=== PATIENT | male | born 1995 | race Caucasian/White ===

== ENCOUNTER 2018-04-05 18:38 | Emergency (ER) | payer OTHER ==
[2018-04-05 21:37] LABS: ABS Basophils 0.1 10^3/ul (0-0.2); ABS Eosinophils 0.1 10^3/ul (0-0.6); ABS Lymphocytes 1.8 10^3/ul (1.0-4.8); ABS Monocytes 0.4 10^3/ul (0-0.8); ABS Neutrophils 3.7 10^3/ul (1.5-7.7); ABS Nucleated RBC 0 10^3/ul; Eosinophil % 1.8 % (0-6); Hematocrit 39 % (42-52); Hemoglobin 13.1 g/dl (14.0-18.0); Lymphocyte % 29.9 % (25-47); Mean Corpuscular HGB Conc 34 g/dl (31-36); Mean Corpuscular Hemoglobin 31 pg (27-31); Mean Corpuscular Volume 92 fL (80-94); Mean Platelet Volume 7.9 um3 (7.4-10.4); Nucleated Red Blood Cells % 0.1; Platelet Count 205 10^3/ul (150-450); Red Blood Count 4.21 10^6/ul (4.00-5.40); Red Cell Distribution Width 13 % (10.5-15)
[2018-04-05 21:54] LABS: EGFR Non-African American 112.9 (>60)
[2018-04-05] MEDS ORDERED: Ketorolac INJ* 30 MG/ML 1 ML VIAL IM ONE (22:13)
[2018-04-05 22:17] LABS: Urine Appearance Clear; Urine Blood Negative (Negative); Urine Color Straw; Urine Ketones Negative (Negative); Urine Protein Negative (Negative); Urine Specific Gravity 1.008 (1.010-1.030); Urine Urobilinogen Negative (Negative)
--- NOTE | 2018-04-05 23:05 | RAD ---
EXAM: CT Abdomen and Pelvis Without Intravenous Contrast CLINICAL HISTORY: 23 years old, male; Pain; Abdominal pain; Additional info: Right side flank pain and right abd pain TECHNIQUE: Axial computed tomography images of the abdomen and pelvis without intravenous contrast. Coronal and sagittal reformatted images were created and reviewed. COMPARISON: No relevant prior studies available. FINDINGS: Lung bases: Nodule located in the periphery of the right lung base. It has smooth margins. It measures approximately 4.6 mm in AP length and 3 mm in width. It is best seen on series 2 image 3. ABDOMEN: Liver: The liver is of normal size and appearance. No focal hepatic lesion. Gallbladder and bile ducts: No calcified gallstone. No ductal dilatation. Pancreas: The pancreas is normal in appearance. No dilatation pancreatic duct. Spleen: The spleen is of normal size and appearance. Adrenals: The adrenal glands are normal. Kidneys and ureters: The kidneys are normal size and appearance. Small punctate calcification located in the right lower pole calyx. This is non-obstructing. No hydronephrosis. In following the course of the right ureter no calcification within the lumen of the ureter. The kidney is of normal size and appearance no hydronephrosis or nephrolithiasis. No hydroureter. Stomach and bowel: Moderate amount of feces and air it is located within the colon. No bowel obstruction. No mucosal thickening. PELVIS: Appendix: The appendix is visualized and is normal in appearance. Bladder: No calcified stone within the bladder. Reproductive: Unremarkable as visualized. ABDOMEN and PELVIS: Intraperitoneal space: No free abdominal fluid or air. Bones/joints: No acute fracture. No dislocation. Soft tissues: Unremarkable. Vasculature: No abdominal aortic aneurysm. Lymph nodes: No mesenteric or periaortic adenopathy. IMPRESSION: 1. No acute findings. 2. 4.6 mm smooth solid nodule located in the periphery of the right lung base. Final read addendum: THE RECOMMENDATIONS FOR FOLLOWUP AND MANAGEMENT OF AN INCIDENTALLY DETECTED PULMONARY NODULE LESS THAN 6 MM IN SIZE, IN A PATIENT WITHOUT A HISTORY OF MALIGNANCY, INCLUDE NO FOLLOWUP FOR A LOW-RISK PATIENT OR OPTIONAL FOLLOWUP CT IN 12 MONTHS FOR A HIGH RISK PATIENT. THESE RECOMMENDATIONS APPLY FOR PATIENTS OVER THE AGE OF 35. 4 PATIENT BELOW THE AGE OF 35, WITH A CONCOMITANT LOWER RISK OF PULMONARY MALIGNANCY, FURTHER EVALUATION SHOULD BE BASED ON CLINICAL CHARACTERISTICS. NOTES: SIZE = AVERAGE LENGTH AND WIDTH; HIGH RISK IS DEFINED A HISTORY OF SMOKING OR OTHER KNOW RISK FACTORS FOR LUNG CANCER; LOW RISK IS DEFINED MINIMAL OR ABSENT HISTORY OF SMOKING OR OTHER KNOWN RISK FACTORS. Ruthie H, JUSTINE Mcdonnell, SHRAVAN Givens, et al (2017) "Guidelines for Management of Incidental Pulmonary Nodules Detected on CT Images: From the Fleischner Society 2017." Radiology; 284(1): 228-243. doi:10.1148/[id number] R2
--- NOTE | 2018-04-05 23:39 | ED ---
GI/ HPI - HPI Summary HPI Summary: 23 year old male presents with right-sided abdominal pain for the past couple days. He states the pain radiates to his right flank. it also radiates to his scrotum occasionally. He denies any testicular pain. No penile discharge. No pains urination. No urgency or frequency. No hematuria. Does have family history kidney stones. No previous surgeries. He admits to constipation has been taking some castor oil. He denies any nausea vomiting. Denies any fever. He hasn't taking anything for his pain. - History of Current Complaint Chief Complaint: EDFlankPain Time Seen by Provider: 04/05/18 22:03 Stated Complaint: RT SIDE AND BACK PAIN Pain Intensity: 4 - Allergy/Home Medications Allergies/Adverse Reactions: Allergies Allergy/AdvReac Type Severity Reaction Status Date / Time No Known Allergies Allergy Verified 04/05/18 18:56 Home Medications: Home Medications Bupropion XL* [Wellbutrin XL *] 150 mg PO DAILY 04/05/18 [History Confirmed ] Dextroamphetamine (NF) TAB [Dexedrine TAB*] 10 mg PO BID 04/05/18 [History Confirmed 04/05/18] Venlafaxine EXT RELEASE CAP* [Effexor Xr CAP*] 112.5 mg PO DAILY 04/05/18 [ History Confirmed 04/05/18] PMH/Surg Hx/FS Hx/Imm Hx Endocrine/Hematology History: Denies: Hx Anticoagulant Therapy Cardiovascular History: Denies: Hx Hypertension - Immunization History Date of Tetanus Vaccine: utd Date of Influenza Vaccine: none Infectious Disease History: No Infectious Disease History: Denies: Traveled Outside the [place] in Last 30 Days - Family History Known Family History: Negative: Diabetes - Social History Alcohol Use: Weekly Alcohol Amount: once a week Substance Use Type: Reports: Marijuana Substance Use Comment - Amount & Last Used: used a few days ago, 1/4 gram Smoking Status (MU): Never Smoked Tobacco Review of Systems Negative: Fever Negative: Chest Pain Negative: Shortness Of Breath Positive: Abdominal Pain Positive: flank pain All Other Systems Reviewed And Are Negative: Yes Physical Exam Triage Information Reviewed: Yes Vital Signs On Initial Exam: Initial Vitals Temp Pulse Resp BP Pulse Ox 98.2 F 89 14 135/83 100 04/05/18 18:52 04/05/18 18:52 04/05/18 18:52 04/05/18 18:52 04/05/18 18:52 Vital Signs Reviewed: Yes Appearance: Positive: Well-Appearing Skin: Positive: Warm, Dry Head/Face: Positive: Normal Head/Face Inspection Eyes: Positive: Normal, Conjunctiva Clear ENT: Positive: Pharynx normal Respiratory/Lung Sounds: Positive: Clear to Auscultation, Breath Sounds Present Cardiovascular: Positive: Normal, RRR Abdomen Description: Positive: Soft, CVA Tenderness (R), Other: - tenderness right side abd Bowel Sounds: Positive: Present Musculoskeletal: Positive: Normal Neurological: Positive: Normal Psychiatric: Positive: Normal Diagnostics - Vital Signs Vital Signs Temp Pulse Resp BP Pulse Ox 04/05/18 22:34 75 100 04/05/18 22:33 72 135/85 100 04/05/18 20:13 98.7 F 86 127/77 100 04/05/18 18:52 98.2 F 89 14 135/83 100 - Laboratory Lab Results: Lab Results 04/05/18 04/05/18 04/05/18 Range/Units 21:17 21:18 22:09 WBC 6.0 (3.5-10.8) 10^3/ul RBC 4.21 (4.00-5.40) 10^6/ul Hgb 13.1 L (14.0-18.0) g/dl Hct 39 L (42-52) % MCV 92 (80-94) fL MCH 31 (27-31) pg MCHC 34 (31-36) g/dl RDW 13 (10.5-15) % Plt Count 205 (150-450) 10^3/ul MPV 7.9 (7.4-10.4) um3 Neut % (Auto) 61.2 (38-83) % Lymph % (Auto) 29.9 (25-47) % Candler % (Auto) 6.2 (0-7) % Eos % (Auto) 1.8 (0-6) % Baso % (Auto) 0.9 (0-2) % Absolute Neuts (auto) 3.7 (1.5-7.7) 10^3/ul Absolute Lymphs (auto) 1.8 (1.0-4.8) 10^3/ul Absolute Monos (auto) 0.4 (0-0.8) 10^3/ul Absolute Eos (auto) 0.1 (0-0.6) 10^3/ul Absolute Basos (auto) 0.1 (0-0.2) 10^3/ul Absolute Nucleated RBC 0 10^3/ul Nucleated RBC % 0.1 Sodium 140 (135-145) mmol/L Potassium 3.7 (3.5-5.0) mmol/L Chloride 104 (101-111) mmol/L Carbon Dioxide 29 (22-32) mmol/L Anion Gap 7 (2-11) mmol/L BUN 12 (6-24) mg/dL Creatinine 0.83 (0.67-1.17) mg/dL Est GFR ( Amer) 136.6 (>60) Est GFR (Non-Af Amer) 112.9 (>60) BUN/Creatinine Ratio 14.5 (8-20) Glucose 82 (70-100) mg/dL Calcium 9.6 (8.6-10.3) mg/dL Total Bilirubin 0.20 (0.2-1.0) mg/dL AST 14 (13-39) U/L ALT 15 (7-52) U/L Alkaline Phosphatase 51 (34-104) U/L C-Reactive Protein < 1.00 (<8.01) mg/L Total Protein 7.4 (6.4-8.9) g/dL Albumin 4.8 (3.2-5.2) g/dL Globulin 2.6 (2-4) g/dL Albumin/Globulin Ratio 1.8 (1-3) Lipase 21 (11.0-82.0) U/L Urine Color Straw Urine Appearance Clear Urine pH 7.0 (5-9) Ur Specific Lena 1.008 L (1.010-1.030) Urine Protein Negative (Negative) Urine Ketones Negative (Negative) Urine Blood Negative (Negative) Urine Nitrate Negative (Negative) Urine Bilirubin Negative (Negative) Urine Urobilinogen Negative (Negative) Ur Leukocyte Esterase Negative (Negative) Urine Glucose Negative (Negative) Result Diagrams: 04/05/18 21:17 04/05/18 21:18 Lab Statement: Any lab studies that have been ordered have been reviewed, and results considered in the medical decision making process. - CT No standard instances CT Interpretation: Positive (See Comments) - IMPRESSION: 1. No acute findings. 2. 4.6 mm smooth solid nodule located in the periphery of the right lung base. Workup and followup breasts additional guidelines. CT Interpretation Completed By: Radiologist RAY Course/Dx - Course Course Of Treatment: 23 year old male presents with right-sided abdominal pain for the past couple days. He states the pain radiates to his right flank. it also radiates to his scrotum occasionally. He denies any testicular pain. No penile discharge. No pains urination. No urgency or frequency. No hematuria. Does have family history kidney stones. No previous surgeries. He admits to constipation has been taking some castor oil. He denies any nausea vomiting. Denies any fever. He hasn't taking anything for his pain. on exam has tenderness right side abd and CVA tenderness right. labs wnl. CT abd normal. discussed could be constipation so try miralax. patient understand and agrees with plan. - Diagnoses Differential Diagnoses - Male: Gastroenteritis (Viral), Pyelonephritis, Ureteral Calculi, Urinary Tract Infection Provider Diagnoses: Abdominal pain Discharge - Sign-Out/Discharge Documenting (check all that apply): Patient Departure - Discharge Plan Condition: Good Disposition: HOME Patient Education Materials: Abdominal Pain (ED) Referrals: [facility] [place] [facility] [Outside] Additional Instructions: Take ibuprofen or Tylenol for pain as needed every 6 hours try miralax daily Est care with primary for follow up Return to ED if develop any new or worsening symptoms - Billing Disposition and Condition Condition: GOOD Disposition: Home
[2018-04-05 23:58] VITALS: BP 146/90
== END 2018-04-05 23:57 | disposition home or self-care (01) ==
LOC: ED 18:38
DX: R10.31 Right lower quadrant pain (principal); N50.82 Scrotal pain; K59.00 Constipation, unspecified; R91.1 Solitary pulmonary nodule
CPT/HCPCS: 36415; 74176; 80053; 81003; 83690; 85025; 86140; 96372; 99283; J1885